=== PATIENT | male | born 1945 | race Caucasian/White ===

== ENCOUNTER → 2019-01-10 | Outpatient (REF) | END | disposition home or self-care (01) | DRG 310 | LOC: LAB 10:50 | DX: I48.0 Paroxysmal atrial fibrillation (principal); Z79.01 Long term (current) use of anticoagulants ==

== ENCOUNTER 2019-09-14 23:35 | Inpatient (IN) | payer MEDICARE ==
[~2019-09-14] VITALS: Ht 180.3 cm; Wt 120.3 kg
[2019-09-14] MEDS ORDERED: ATORVASTATIN CA80 MG PO (23:57)
[2019-09-14] MEDS ORDERED: LOPID600 MG PO (23:57)
[2019-09-14] MEDS ORDERED: NOVOLIN 70/30 SC (23:58)
[2019-09-14] MEDS ORDERED: LOPRESSOR50 M1 PO (23:58)
[2019-09-14] MEDS ORDERED: METFORMIN500 M2 PO (23:58)
[2019-09-14] MEDS ORDERED: COUMADIN2.5 MG PO (23:59)
[2019-09-14] MEDS ORDERED: TAMSULOSIN0.4 MG PO (23:59)
[2019-09-15] VITALS (7 sets, daily range): BP systolic 127–162; BP diastolic 63–81
[2019-09-15 00:21] LABS: HEMATOCRIT 43.7 % (39.0-50.0); HEMOGLOBIN 14.3 g/dl (14.0-18.0); IMMATURE GRANULOCYTES 0.3 % (0.0-5.0); MEAN CELL VOLUME 88.6 fL CALC (80.0-100.0); MEAN CORPUSCULAR HGB CONC 32.7 g/L CALC (32.0-36.0); NEUT# 6.7 thou/uL (1.82-7.42); RED BLOOD COUNT 4.93 mill/uL (4.70-6.10)
[2019-09-15 00:39] LABS: ALBUMIN 4.4 g/dL (3.2-5.0); CREATININE 1.5 mg/dL (0.7-1.3); POTASSIUM 4.2 mmol/l (3.5-5.1); TOTAL PROTEIN 8.3 g/dL (6.3-8.2)
[2019-09-15 00:56] LABS: URINE BILIRUBIN - DIPSTICK NEGATIVE (NEGATIVE); URINE BLOOD DIPSTICK SMALL (NEGATIVE); URINE COLOR YELLOW; URINE GLUCOSE - DIPSTICK NEGATIVE (NEGATIVE); URINE KETONE NEGATIVE (NEGATIVE); URINE NITRITE - DIPSTICK NEGATIVE (Negative); URINE PROTEIN - DIPSTICK 100 mg/dL (NEG-TRACE); URINE SPECIFIC GRAVITY >=1.030
[2019-09-15 01:01] LABS: URINE LEUK ESTERASE NEGATIVE (NEGATIVE)
[2019-09-15 01:03] LABS: URINE BACTERIA FEW hpf; URINE EPITHELIAL CELLS FEW EPI/hpf (0-FEW)
[2019-09-15 01:04] LABS: URINE CASTS FEW lpf (NONE-RARE); URINE HYALINE CAST FEW lpf (NONE-RARE); URINE MUCUS FEW hpf (NONE-FEW)
[2019-09-15 01:33] LABS: PROTHROMBIN TIME 33.5 SECONDS (9.0-12.5)
[2019-09-15 01:34] LABS: INTERNATIONAL NORMALIZED RATIO 3.4 RATIO (0.7-1.3)
[2019-09-15 09:39] LABS: ANION GAP 14 (6-22 (CALC)); BUN 27 mg/dL (8-23); BUN/CREATININE RATIO 24 (12-20 (CALC)); CHLORIDE 110 mmol/l (95-108); CREATININE 1.1 mg/dL (0.7-1.3); GFR > 60 ML/MIN (>=60 (CALC)); GFR FOR AFR.AMER. > 60 ML/MIN (>=60 (CALC)); MAGNESIUM 1.6 mg/dL (1.6-2.3); POTASSIUM 4.3 mmol/l (3.5-5.1); SODIUM 139 mmol/l (137-146)
[2019-09-15 09:50] LABS: CARBON DIOXIDE 19 mmol/l (22-30)
[2019-09-15 10:19] LABS: HEMATOCRIT 39.4 % (39.0-50.0); HEMOGLOBIN 12.9 g/dl (14.0-18.0); IMMATURE GRANULOCYTES 0.5 % (0.0-5.0); MEAN CELL VOLUME 87.8 fL CALC (80.0-100.0); MEAN CORPUSCULAR HGB 28.7 pG CALC (26.0-32.0); MEAN CORPUSCULAR HGB CONC 32.7 g/L CALC (32.0-36.0); NEUT# 3.77 thou/uL (1.82-7.42); RED BLOOD COUNT 4.49 mill/uL (4.70-6.10)
[2019-09-15] MEDS ORDERED: ENALAPRIL2.5 MG PO (11:36)
[2019-09-15] MEDS ORDERED: NITROSTAT0.4 MG SL (11:37)
[2019-09-15] MEDS ORDERED: CLOPIDOGREL75 MG PO (11:38)
[2019-09-15 15:26] LABS: INTERNATIONAL NORMALIZED RATIO 2.9 RATIO (0.7-1.3); PROTHROMBIN TIME 29.1 SECONDS (9.0-12.5)
[2019-09-16 00:25] VITALS: BP 160/79
[2019-09-16 03:40] VITALS: BP 106/63
[2019-09-16 04:51] LABS: HEMATOCRIT 34.9 % (39.0-50.0); HEMOGLOBIN 11.3 g/dl (14.0-18.0); IMMATURE GRANULOCYTES 0.6 % (0.0-5.0); MEAN CELL VOLUME 88.4 fL CALC (80.0-100.0); MEAN CORPUSCULAR HGB 28.6 pG CALC (26.0-32.0); MEAN CORPUSCULAR HGB CONC 32.4 g/L CALC (32.0-36.0); NEUT# 5.21 thou/uL (1.82-7.42); RED BLOOD COUNT 3.95 mill/uL (4.70-6.10); RED CELL DISTRI WIDTH 13.8 % (11.5-15.5)
[2019-09-16 05:09] LABS: BUN 24 mg/dL (8-23); BUN/CREATININE RATIO 26 (12-20 (CALC)); CHLORIDE 109 mmol/l (95-108); GFR > 60 ML/MIN (>=60 (CALC)); GFR FOR AFR.AMER. > 60 ML/MIN (>=60 (CALC)); POTASSIUM 4.3 mmol/l (3.5-5.1); SODIUM 138 mmol/l (137-146)
[2019-09-16 05:12] LABS: ANION GAP 9 (6-22 (CALC)); CARBON DIOXIDE 24 mmol/l (22-30)
[2019-09-16 05:13] LABS: INTERNATIONAL NORMALIZED RATIO 2.2 RATIO (0.7-1.3); PROTHROMBIN TIME 21.8 SECONDS (9.0-12.5)
[2019-09-16 11:56] VITALS: BP 162/75
[2019-09-16] MEDS ORDERED: PREDNISONE10 MG PO (13:00)
[2019-09-16] MEDS ORDERED: LEVAQUIN750 MG PO (13:00)
== END 2019-09-16 16:26 | disposition home or self-care (01) | DRG 193 ==
LOC: ED 23:35 → ED-I 09-15 01:37 → ED 09-15 01:56 → MS2 09-15 01:57
PROVIDERS: Emergency Medicine; Nurse Practitioner Family; ADMIT Internal Medicine; ATTEND Internal Medicine
DX: J18.9 Pneumonia, unspecified organism (principal); J96.21 Acute and chronic respiratory failure with hypoxia; I10 Essential (primary) hypertension; E11.9 Type 2 diabetes mellitus without complications; I48.0 Paroxysmal atrial fibrillation; I25.10 Atherosclerotic heart disease of native coronary artery without angina pectoris; E78.5 Hyperlipidemia, unspecified; R79.1 Abnormal coagulation profile; T45.515A Adverse effect of anticoagulants, initial encounter; I69.992 Facial weakness following unspecified cerebrovascular disease; H91.90 Unspecified hearing loss, unspecified ear; Z79.4 Long term (current) use of insulin; Z79.01 Long term (current) use of anticoagulants; Z95.1 Presence of aortocoronary bypass graft; Z87.891 Personal history of nicotine dependence; Z91.19 Patient's noncompliance with other medical treatment and regimen; Z79.02 Long term (current) use of antithrombotics/antiplatelets

== ENCOUNTER 2019-12-29 | Inpatient (IN) | payer MEDICARE ==
[~2019-12-29] MED LIST: ATORVASTATIN CA80 MG PO; CLOPIDOGREL75 MG PO; COUMADIN2 MG PO; ENALAPRIL2.5 MG PO; LEVAQUIN750 MG PO; LOPID600 MG PO; LOPRESSOR50 M1 PO; METFORMIN500 M2 PO; NITROSTAT0.4 MG SL; NOVOLIN 70/30 SC; PREDNISONE10 MG PO; TAMSULOSIN0.4 MG PO
[2019-12-29 16:03] VITALS: BP 159/65
[2019-12-29 16:25] LABS: IMMATURE GRANULOCYTES 0.3 % (0.0-5.0); MEAN CELL VOLUME 83.4 fL CALC (80.0-100.0); MEAN CORPUSCULAR HGB 27.7 pG CALC (26.0-32.0); MEAN CORPUSCULAR HGB CONC 33.2 g/L CALC (32.0-36.0); NEUT# 8.81 thou/uL (1.82-7.42); RED BLOOD COUNT 5.24 mill/uL (4.70-6.10); RED CELL DISTRI WIDTH 13.4 % (11.5-15.5)
[2019-12-29 16:42] LABS: HEMATOCRIT 43.7 % (39.0-50.0); HEMOGLOBIN 14.5 g/dl (14.0-18.0)
--- NOTE | 2019-12-29 17:00 | NUR ---
PT ARRIVES BY WHEELCHAIR PUSHED BY VOLUNTEER A DIRECT ADMIT FROM DR BARRETT'S OFFICE. PT IS AWAKE, ALERT, ORIENTED X 3. PT WITH HX OF KIDNEY STONES RECOGNIZES THIS ANOTHER EPISODE. IV ESTABLISHED, BLOOD DRAWN, MED PROVIDED. PT HAS BEEN TO CT AND BACK. NO ACUTE DISTRESS, BUT PT UNCOMFORTABLE.
[2019-12-29 17:03] LABS: ALBUMIN 4.4 g/dL (3.2-5.0); BILIRUBIN, TOTAL 1.2 mg/dL (0.0-1.4); POTASSIUM 4.7 mmol/l (3.5-5.1); TOTAL PROTEIN 8.2 g/dL (6.3-8.2)
[2019-12-29 17:08] LABS: PROTHROMBIN TIME 48.6 SECONDS (9.0-12.5)
[2019-12-29 17:12] LABS: CREATININE 2.7 mg/dL (0.7-1.3)
[2019-12-29 18:40] VITALS: BP 156/65
--- NOTE | 2019-12-29 19:23 | NUR ---
PT SLEEPING IN BED. AWAKENED TO COMPLETE ASSESSMENT. PT A&O X3. NO DISTRESS NOTED. C/O OF SOME RT FLANK PAIN. NO OTHER NEEDS AT THIS TIME. URINAL AT BEDSIDE. DISCUSSED POC. ASSESSMENT COMPLETED. CALL LIGHT IN REACH. CONTINUE TO MONITOR.
--- NOTE | 2019-12-29 22:18 | NUR ---
ORDERS PLACED FOR NPO STATUS. EXPLAINED TO PT REASONING BEHIND INTERVENTION. PT VERBALIZED UNDERSTANDING. CONTINUE TO MONITOR.
--- NOTE | 2019-12-29 22:25 | NUR ---
CONSENT FOR FFP ADMINISTRATION OBTAINED.
[2019-12-29 22:43] LABS: URINE BILIRUBIN - DIPSTICK NEGATIVE (NEGATIVE); URINE BLOOD DIPSTICK TRACE-INTACT (NEGATIVE); URINE CLARITY CLEAR; URINE COLOR YELLOW; URINE GLUCOSE - DIPSTICK 100 mg/dL (NEGATIVE); URINE KETONE NEGATIVE (NEGATIVE); URINE LEUK ESTERASE NEGATIVE (Negative); URINE NITRITE - DIPSTICK NEGATIVE (Negative); URINE PH 5.5 (4.5-8.0); URINE PROTEIN - DIPSTICK TRACE mg/dL (NEG-TRACE); URINE UROBILINOGEN - DIPSTICK 0.2 E.U./dL (0.2)
[2019-12-29 22:46] VITALS: BP 126/63
--- NOTE | 2019-12-29 23:06 | NUR ---
FIRST UNIT OF FFP INITIATED. PRODUCT AND PT VERFIED X 2 WITH ARDEN RANGEL. INITIATION OF TRANSFUSION BY ARDEN RANGEL. CONTINUE TO MONITOR.
[2019-12-29 23:21] VITALS: BP 146/56
--- NOTE | 2019-12-29 23:21 | NUR ---
FFP INFUSING, NO DISTRESS OR REACTION NOTED. CONTINUE TO MONITOR.
[2019-12-30] VITALS (14 sets, daily range): BP systolic 100–155; BP diastolic 51–73
--- NOTE | 2019-12-30 00:06 | NUR ---
FFP INFUSING. NO DISTRESS NOTED. CONTINUE TO MONITOR.
--- NOTE | 2019-12-30 00:44 | NUR ---
FFP INFUSION COMPLETE. NO DISTRESS NOTED. CONTINUE TO MONITOR.
--- NOTE | 2019-12-30 01:23 | NUR ---
SECOND UNIT OF FFP INITIATED. PRODUCT AND PT VERIFIED X 2 WITH ADREN RANGEL. INITIATION OF TRANSFUSION BY ARDEN CONTINUE TO MONITOR.
--- NOTE | 2019-12-30 01:38 | NUR ---
FFP INFUSING, NO DISTRESS OR REACTION NOTED. CONTINUE TO MONITOR.
--- NOTE | 2019-12-30 02:23 | NUR ---
FFP INFUSING. NO DISTRESS NOTED. CONTINUE TO MONITOR.
--- NOTE | 2019-12-30 03:15 | NUR ---
SECOND OF FFP COMPLETE. NO DISTRESS NOTED. CONTINUE TO MONITOR.
--- NOTE | 2019-12-30 04:39 | NUR ---
PT SLEEPING IN BED. NO DISTRESS NOTED. CONTINUE TO MONITOR.
[2019-12-30 05:18] LABS: MEAN CELL VOLUME 84.1 fL CALC (80.0-100.0); MEAN CORPUSCULAR HGB 27.4 pG CALC (26.0-32.0); MEAN CORPUSCULAR HGB CONC 32.5 g/L CALC (32.0-36.0); RED BLOOD COUNT 4.46 mill/uL (4.70-6.10); RED CELL DISTRI WIDTH 13.2 % (11.5-15.5)
[2019-12-30 05:20] LABS: CREATININE 2.6 mg/dL (0.7-1.3); POTASSIUM 4.2 mmol/l (3.5-5.1)
[2019-12-30 05:24] LABS: HEMATOCRIT 37.5 % (39.0-50.0); HEMOGLOBIN 12.2 g/dl (14.0-18.0)
[2019-12-30 05:27] LABS: INTERNATIONAL NORMALIZED RATIO 2.9 RATIO (0.7-1.3); PROTHROMBIN TIME 29.1 SECONDS (9.0-12.5)
--- NOTE | 2019-12-30 07:45 | NUR ---
PATIENT SITTING UP IN RECLINER SLEEPING SOUNDLY. NOT DISTURBED AT THIS TIME. RESP EVEN AND UNLABORED.
--- NOTE | 2019-12-30 09:00 | NUR ---
AWAKE ON ROUNDS, SPOUSE AT BEDSIDE. VSS. RESP NON-LABORED, LUNGS CLEAR. IV IN LAC, SITE BENIGN. SHIFT ASSESSMENT COMPLETED. DISCUSSED PLAN OF CARE. CONSENT OBTAINED FOR OR TODAY. CALL SANCHEZ IN REACH.
--- NOTE | 2019-12-30 10:05 | NUR ---
PATIENT UP OOB AND SHOWERED. MEDICATED FOR C/O PAIN WITH DILAUDID ORDERED.
--- NOTE | 2019-12-30 10:30 | NUR ---
PATIENT STATES PAIN MED HAS HELPED, PAIN LEVEL DECREASED.
--- NOTE | 2019-12-30 12:22 | NUR ---
RESTING WITH EYES CLOSED. RESP NON-LABORED. NPO STATUS MAINTAINED FOR OR THIS AFTERNOON.
--- NOTE | 2019-12-30 12:45 | NUR ---
TO OR VIA STRETCHER ACCOMPANIED BY OR STAFF.
--- NOTE | 2019-12-30 15:25 | NUR ---
RETURNED FROM OR VIA STRETCHER. PATIENT DROWSY BUT AROUSABLE TO NAME. PATIENT TRANSFERRED SELF FROM STRETCHER TO BED. PATIENT ASSISTED TO STAND TO VOID USING URINAL. PATIENT VOIDS 100 ML CLOUDY TEA COLORED URINE.
--- NOTE | 2019-12-30 18:50 | NUR ---
REPORT REC FROM TANIYA RANGEL
--- NOTE | 2019-12-30 19:37 | NUR ---
PT SLEEPING IN BED. AWAKENED TO COMPLETE ASSESSMENT. PT A&O X3, BUT DROWSINESS NOTED. NO COMPLAINTS OF PAIN AT THIS TIME, PER PT A LITTLE BIT OF PAIN IS FELT WHEN HE URINATES. ASSISTED PT TO THE SIDE OF THE BED TO USE THE URINAL, URINE TEA IN COLOR. SCD'S IN PLACE. DISCUSSED POC. ASSESSMENT COMPLETED. CALL LIGHT IN REACH. CONTINUE TO MONITOR.
--- NOTE | 2019-12-31 | NUR ---
PT SITTING IN BED WATCHING TV AND EATING ICE CREAM. NO OTHER NEEDS AT THIS TIME. CONTINUE TO MONITOR.
[2019-12-31 03:23] VITALS: BP 139/70
--- NOTE | 2019-12-31 04:00 | NUR ---
PT SLEEPING IN BED. NO DISTRESS NOTED. CONTINUE TO MONITOR.
[2019-12-31 05:07] LABS: INTERNATIONAL NORMALIZED RATIO 2.7 RATIO (0.7-1.3); PROTHROMBIN TIME 26.6 SECONDS (9.0-12.5)
--- NOTE | 2019-12-31 07:35 | NUR ---
RESTING IN BED. AWAKE ON ROUNDS. DENIES ANY PAIN OR DISCOMFORTS. RESP NON-LABORED. LUNGS CLEAR. LAC SALINE LOCK INATCT, SITE BENIGN. SHIFT ASSESSMENT COMPLETED. DENIES ANY PAIN OR DISCOMFORTS. CALL SANCHEZ IN REACH.
[2019-12-31 08:25] LABS: HEMATOCRIT 33.3 % (39.0-50.0); HEMOGLOBIN 10.8 g/dl (14.0-18.0); MEAN CELL VOLUME 86.3 fL CALC (80.0-100.0); MEAN CORPUSCULAR HGB CONC 32.4 g/L CALC (32.0-36.0); RED BLOOD COUNT 3.86 mill/uL (4.70-6.10); RED CELL DISTRI WIDTH 13.5 % (11.5-15.5)
[2019-12-31 08:33] LABS: CREATININE 1.9 mg/dL (0.7-1.3); POTASSIUM 4.2 mmol/l (3.5-5.1)
[2019-12-31 08:37] LABS: BILIRUBIN, TOTAL 0.7 mg/dL (0.0-1.4); TOTAL PROTEIN 5.8 g/dL (6.3-8.2)
[2019-12-31] MEDS ORDERED: KEFLEX500 MG PO (11:12)
--- NOTE | 2019-12-31 12:37 | NUR ---
Discharge instructions given. Patient verbalizes understanding of same. Discharged in stable condition via Wheelchair to Home with spouse. All belongings sent with pt.
== END 2019-12-31 12:34 | disposition home or self-care (01) | DRG 660 ==
PROVIDERS: Nurse Practitioner Family; ADMIT Internal Medicine
PROC: 30233K1 Transfusion of Nonautologous Frozen Plasma into Peripheral Vein, Percutaneous Approach (ICD-10-PCS; 2019-12-29)
PROC: 0T768DZ Dilation of Right Ureter with Intraluminal Device, Via Natural or Artificial Opening Endoscopic (ICD-10-PCS; principal; 2019-12-30)
PROC: BT1D1ZZ Fluoroscopy of Right Kidney, Ureter and Bladder using Low Osmolar Contrast (ICD-10-PCS; 2019-12-30)
PROC: 30233K1 Transfusion of Nonautologous Frozen Plasma into Peripheral Vein, Percutaneous Approach (ICD-10-PCS; 2019-12-30)
DX: N13.6 Pyonephrosis (principal); E87.1 Hypo-osmolality and hyponatremia; I48.20 Chronic atrial fibrillation, unspecified; D68.32 Hemorrhagic disorder due to extrinsic circulating anticoagulants; N17.9 Acute kidney failure, unspecified; R31.9 Hematuria, unspecified; I12.9 Hypertensive chronic kidney disease with stage 1 through stage 4 chronic kidney disease, or unspecified chronic kidney disease; E11.22 Type 2 diabetes mellitus with diabetic chronic kidney disease; N18.9 Chronic kidney disease, unspecified; I25.10 Atherosclerotic heart disease of native coronary artery without angina pectoris; N40.0 Benign prostatic hyperplasia without lower urinary tract symptoms; E78.5 Hyperlipidemia, unspecified; F03.90 Unspecified dementia, unspecified severity, without behavioral disturbance, psychotic disturbance, mood disturbance, and anxiety; T45.515A Adverse effect of anticoagulants, initial encounter; Z95.1 Presence of aortocoronary bypass graft; Z79.4 Long term (current) use of insulin; Z87.891 Personal history of nicotine dependence; Z86.73 Personal history of transient ischemic attack (TIA), and cerebral infarction without residual deficits; Z79.01 Long term (current) use of anticoagulants; Z87.442 Personal history of urinary calculi
CPT/HCPCS: C1769; Q9967

== ENCOUNTER 2020-11-22 10:22 | Inpatient (IN) | payer MEDICARE ==
[~2020-11-22] VITALS: Ht 180.3 cm; Wt 102.1 kg
[~2020-11-22 10:22] MED LIST changes: -COUMADIN2 MG PO; +KEFLEX500 MG PO; +WARFARIN SODIU2.5 MG PO
[2020-11-22 10:55] VITALS: BP 146/73
[2020-11-22 11:40] LABS: HEMOGLOBIN 12.5 g/dl (14.0-18.0); IMMATURE GRANULOCYTES 0.3 % (0.0-5.0); MEAN CELL VOLUME 82.8 fL CALC (80.0-100.0); MEAN CORPUSCULAR HGB 25.9 pG CALC (26.0-32.0); MEAN CORPUSCULAR HGB CONC 31.3 g/dL CAL (32.0-36.0); NEUT# 3.86 thou/uL (1.82-7.42); RED BLOOD COUNT 4.83 mill/uL (4.70-6.10); RED CELL DISTRI WIDTH 14.8 % (11.5-15.5)
[2020-11-22 11:56] LABS: INTERNATIONAL NORMALIZED RATIO 3.2 RATIO (0.7-1.3); PROTHROMBIN TIME 29.8 SECONDS (9.0-12.5)
[2020-11-22 12:00] LABS: BILIRUBIN, TOTAL 0.8 mg/dL (0.0-1.4); BUN 31 mg/dL (8-23); BUN/CREATININE RATIO 14 (12-20 (CALC)); CHLORIDE 105 mmol/l (95-108); CREATININE 2.2 mg/dL (0.7-1.3); GFR 29 ML/MIN (>=60 (CALC)); GFR FOR AFR.AMER. 36 ML/MIN (>=60 (CALC)); POTASSIUM 4.1 mmol/l (3.5-5.1); SGOT/AST 18 u/l (19-48)
[2020-11-22 12:01] LABS: ALBUMIN 4.1 g/dL (3.2-5.0); ANION GAP 13 (6-22 (CALC)); CARBON DIOXIDE 27 mmol/l (22-30); SODIUM 141 mmol/l (137-146); TOTAL PROTEIN 8.3 g/dL (6.3-8.2)
[2020-11-22 12:02] LABS: ALKALINE PHOSPHATASE 191 u/l (38-126)
[2020-11-22] MEDS ORDERED: METFORMIN HCL1000 MG PO (15:09)
[2020-11-22] MEDS ORDERED: CIPROFLOXACN500 MG PO (15:10)
[2020-11-22] MEDS ORDERED: LOPID600 MG PO (15:10)
[2020-11-22 15:35] VITALS: BP 138/85
[2020-11-22 17:45] LABS: URINE BILIRUBIN - DIPSTICK NEGATIVE (NEGATIVE); URINE BLOOD DIPSTICK SMALL (NEGATIVE); URINE CLARITY CLEAR; URINE COLOR YELLOW; URINE GLUCOSE - DIPSTICK NEGATIVE (NEGATIVE); URINE KETONE NEGATIVE (NEGATIVE); URINE LEUK ESTERASE NEGATIVE (Negative); URINE NITRITE - DIPSTICK NEGATIVE (Negative); URINE PROTEIN - DIPSTICK NEGATIVE (NEG-TRACE); URINE UROBILINOGEN - DIPSTICK 0.2 E.U./dL (0.2)
[2020-11-22 18:24] LABS: URINE WBC 0-2 WBC/hpf (0-5)
[2020-11-22 19:07] VITALS: BP 157/82
[2020-11-23] VITALS (12 sets, daily range): BP systolic 104–150; BP diastolic 42–79
[2020-11-23 05:25] LABS: BILIRUBIN, TOTAL 0.6 mg/dL (0.0-1.4); CREATININE 1.8 mg/dL (0.7-1.3)
[2020-11-23 05:29] LABS: ALBUMIN 2.9 g/dL (3.2-5.0); TOTAL PROTEIN 5.8 g/dL (6.3-8.2)
[2020-11-24] VITALS: BP 144/73
[2020-11-24 04:00] VITALS: BP 139/58
[2020-11-24 07:49] VITALS: BP 130/68
[2020-11-24 09:54] LABS: HEMOGLOBIN 11.9 g/dl (14.0-18.0); IMMATURE GRANULOCYTES 0.2 % (0.0-5.0); MEAN CORPUSCULAR HGB 25.3 pG CALC (26.0-32.0); MEAN CORPUSCULAR HGB CONC 30.5 g/dL CAL (32.0-36.0); NEUT# 3.53 thou/uL (1.82-7.42); RED BLOOD COUNT 4.7 mill/uL (4.70-6.10); RED CELL DISTRI WIDTH 14.7 % (11.5-15.5)
[2020-11-24 10:13] LABS: PROTHROMBIN TIME 18.9 SECONDS (9.0-12.5)
[2020-11-24 11:04] VITALS: BP 134/70
== END 2020-11-24 12:58 | disposition home or self-care (01) | DRG 661 ==
LOC: MS2 10:22
PROVIDERS: Nurse Practitioner; ADMIT Internal Medicine; ATTEND Internal Medicine
PROC: 0T768DZ Dilation of Right Ureter with Intraluminal Device, Via Natural or Artificial Opening Endoscopic (ICD-10-PCS; principal; 2020-11-23)
PROC: BT1D1ZZ Fluoroscopy of Right Kidney, Ureter and Bladder using Low Osmolar Contrast (ICD-10-PCS; 2020-11-23)
DX: N13.2 Hydronephrosis with renal and ureteral calculous obstruction (principal); N17.9 Acute kidney failure, unspecified; I48.0 Paroxysmal atrial fibrillation; I25.10 Atherosclerotic heart disease of native coronary artery without angina pectoris; I10 Essential (primary) hypertension; E11.9 Type 2 diabetes mellitus without complications; E78.5 Hyperlipidemia, unspecified; F03.90 Unspecified dementia, unspecified severity, without behavioral disturbance, psychotic disturbance, mood disturbance, and anxiety; Z79.01 Long term (current) use of anticoagulants; Z79.4 Long term (current) use of insulin; Z79.899 Other long term (current) drug therapy; Z95.1 Presence of aortocoronary bypass graft; Z87.442 Personal history of urinary calculi; Z86.73 Personal history of transient ischemic attack (TIA), and cerebral infarction without residual deficits; Z96.651 Presence of right artificial knee joint; Z87.891 Personal history of nicotine dependence
CPT/HCPCS: C1769; J0131; Q9967

== ENCOUNTER 2020-12-20 11:54 | Inpatient (IN) | payer MEDICARE ==
[~2020-12-20] VITALS: Ht 180.3 cm; Wt 98.4 kg
[~2020-12-20 11:54] MED LIST changes: +CIPROFLOXACN500 MG PO; +METFORMIN HCL1000 MG PO
--- NOTE | 2020-12-20 12:06 | NUR ---
PT ARRIVED VIA WC WITH STAFF IV SITE STARTED BY Brandy RANGEL WITH #20 IN [facility].
[2020-12-20 12:15] VITALS: BP 141/80
--- NOTE | 2020-12-20 13:30 | NUR ---
ASSESSMENT IS COMPELTED: IV SITE IS FREE FROM REDNESS OR EDEMA. HR IS REG,PULSES ARE STRONG X4, ABD IS SOFT WITH ACTIVE BS. BREATH SOUNDS ARE CLEAR BILATERALLY. WAITING ON SURGERY TOMORROW. TELE MONITOR IN PLACE.
--- NOTE | 2020-12-20 14:40 | NUR ---
LABS DRAWN AND COVID TESTING WAS PERFORMED AT THIS TIME.
[2020-12-20 15:04] LABS: HEMOGLOBIN 11.5 g/dl (14.0-18.0); MEAN CORPUSCULAR HGB 25.8 pG CALC (26.0-32.0); MEAN CORPUSCULAR HGB CONC 31.1 g/dL CAL (32.0-36.0); NEUT# 1.43 thou/uL (1.82-7.42); RED BLOOD COUNT 4.46 mill/uL (4.70-6.10); RED CELL DISTRI WIDTH 15.4 % (11.5-15.5)
[2020-12-20 15:20] VITALS: BP 152/81
[2020-12-20 15:27] LABS: PROTHROMBIN TIME 13.7 SECONDS (9.0-12.5)
[2020-12-20 15:28] LABS: INTERNATIONAL NORMALIZED RATIO 1.4 RATIO (0.7-1.3)
[2020-12-20 15:30] LABS: ALBUMIN 3.4 g/dL (3.2-5.0); ALKALINE PHOSPHATASE 144 u/l (38-126); ANION GAP 9 (6-22 (CALC)); BILIRUBIN, TOTAL 0.8 mg/dL (0.0-1.4); BUN 25 mg/dL (8-23); BUN/CREATININE RATIO 19 (12-20 (CALC)); CARBON DIOXIDE 27 mmol/l (22-30); CHLORIDE 107 mmol/l (95-108); CREATININE 1.3 mg/dL (0.7-1.3); GFR 54 ML/MIN (>=60 (CALC)); GFR FOR AFR.AMER. > 60 ML/MIN (>=60 (CALC)); POTASSIUM 4.1 mmol/l (3.5-5.1); SODIUM 139 mmol/l (137-146); TOTAL PROTEIN 6.4 g/dL (6.3-8.2)
[2020-12-20 15:38] LABS: SGOT/AST 28 u/l (19-48)
[2020-12-20 19:00] VITALS: BP 150/78
--- NOTE | 2020-12-20 20:00 | NUR ---
CONSENT FORM SIGNED FOR SURGERY. PT REMAINS IN BED REMINDED HIM ABOUT NPO PROTOCOL STARTING AT MIDNIGHT. HE IS ALERT AND ORIENTED. CALL LIGHT WITHIN REACJ. WILL CONTINUE TO MONITOR
--- NOTE | 2020-12-21 | NUR ---
PT SLEEPING PEACEFULLY IN BED. NPO PROTOCAL IN PLACE. CALL LIGHT WITHIN REACH WILL CONTINUE TO MONITOR
[2020-12-21 04:01] VITALS: BP 152/78
--- NOTE | 2020-12-21 04:17 | NUR ---
PT SUGAR 54. PT UNRESPONSIVE. AFTER NUMEROUS ATTEMPS TO WAKE HE RESPONDS. PT IS GIVEN TWO CONTAINERS OF ORANGE JUICE AND SUGAR. BOLUS DEXTROSE 250 GIVEN OVER 15 MIN. PT IS SYMPTOMATIC NURSE SITTING BY PT BED SIDE
[2020-12-21 05:34] LABS: ALKALINE PHOSPHATASE 141 u/l (38-126); ANION GAP 8 (6-22 (CALC)); BILIRUBIN, TOTAL 0.8 mg/dL (0.0-1.4); BUN 22 mg/dL (8-23); BUN/CREATININE RATIO 18 (12-20 (CALC)); CARBON DIOXIDE 28 mmol/l (22-30); CHLORIDE 109 mmol/l (95-108); CREATININE 1.3 mg/dL (0.7-1.3); GFR 54 ML/MIN (>=60 (CALC)); GFR FOR AFR.AMER. > 60 ML/MIN (>=60 (CALC)); POTASSIUM 3.6 mmol/l (3.5-5.1); SGOT/AST 26 u/l (19-48); SODIUM 141 mmol/l (137-146); TOTAL PROTEIN 5.8 g/dL (6.3-8.2)
--- NOTE | 2020-12-21 07:15 | NUR ---
PT ALERT AND ORIENTED NO SIGNS OF HYPOGYLCEMIA. RESPONSIVE WHEN NURSE CALLS HIS NAME. CONTINUE NPO. SAMIR LIGHT WITH IN REACH CONTINUING TO MONIOR PT
[2020-12-21 07:50] VITALS: BP 154/70
--- NOTE | 2020-12-21 07:50 | NUR ---
PT RESTING IN SEMI FOWLERS POSITION. PT IS A/O X2 WITH SOME CONFUSION. ASSESSMENT AND VITALS COMPLETED. BP 154/70, HR 57, O2 99% ON ROOM AIR. RESPIRAITONS ARE EVEN AND UNLABORED WITH NO DISTRESS NOTED. HEART RHYTHM NORMAL. BOWEL SOUNDS ARE ACTIVE. RADIAL AND PEDAL PUSLES STRONG. #22G IN LAC FLUSHED, SITE APPEARS HEALTHY AND PATENT. SKIN IS WARM AND INTACT.PT SCHEDULED FOR LASER LITHROTRIPSY BY DR AMAYA. PT DENIES OF ANY PAINS OR DISCOMFORTS. ALL SAFETY PRECAUTIONS ARE IN PLACE WITH CALL LIGHT IN REACH. WILL CONTINUE TO MONITOR
--- NOTE | 2020-12-21 09:08 | NUR ---
DR BARRETT AT BEDSIDE
[2020-12-21 09:15] LABS: URINE BILIRUBIN - DIPSTICK NEGATIVE (NEGATIVE); URINE BLOOD DIPSTICK LARGE (NEGATIVE); URINE CLARITY SL CLOUDY; URINE COLOR YELLOW; URINE GLUCOSE - DIPSTICK NEGATIVE (NEGATIVE); URINE KETONE NEGATIVE (NEGATIVE); URINE LEUK ESTERASE NEGATIVE (Negative); URINE NITRITE - DIPSTICK NEGATIVE (Negative); URINE PROTEIN - DIPSTICK 30 mg/dL (NEG-TRACE); URINE SPECIFIC GRAVITY 1.025; URINE UROBILINOGEN - DIPSTICK 0.2 E.U./dL (0.2)
--- NOTE | 2020-12-21 09:15 | NUR ---
NOTIFED BY OR THAT PROCEDURE WILL TAKE PLACE AROUND NOON. PT NOTFIED
[2020-12-21 09:27] LABS: URINE RBC >100 RBC/hpf (0-5)
[2020-12-21 09:28] LABS: URINE RENAL EPITHELIAL CELLS FEW hpf; URINE TRANSITIONAL EPI. CELLS FEW hpf
[2020-12-21 09:29] LABS: URINE BACTERIA RARE hpf
--- NOTE | 2020-12-21 12:10 | NUR ---
PT RESTING IN LOW FOWLERS POSITION. RESPIRATIONS ARE EVEN AND UNLABORED ON ROOM AIR. NPO STATUS REMIANS. IVF INFUSING WITH EASE, SITE APPEARS HEALTHY AND PATENT. PT DENIES OF ANY PAINS. ALL SAFETY PRECAUTIONS ARE IN PLACE WITH CALL LIGHT IN REACH. WILL CONTINUE TO MONITOR.
[2020-12-21 16:35] VITALS: BP 140/67
--- NOTE | 2020-12-21 16:40 | NUR ---
PT ARRIVED BACK TO [facility] ROOM 270 VIA BED IN STABLE CONDITION. PT REAMINS A/O X2. PLANS FOR DISCHARGE. PT INFORMED. ALL SAFETY PRECAUTIONS ARE IN PLACE. WILL CONTINUE TO MONITOR.
[2020-12-21 16:50] VITALS: BP 106/76
[2020-12-21 17:05] VITALS: BP 130/39
[2020-12-21 17:20] VITALS: BP 111/55
[2020-12-21] MEDS ORDERED: DICYCLOMINE20 MG PO (18:20)
[2020-12-21] MEDS ORDERED: ULTRAM50 M1 PO (18:25)
--- NOTE | 2020-12-21 18:50 | NUR ---
PT EDUCATED ON DISHARGED INSTRUCTIONS AND NEW MEDICATIONS. PT VERBLAIZED UNDERSTANDING. #20G IN RAC REMOVED WITH CATAHTER STILL INTACT. PT TOELRATED WELL. WAITING FOR TRANSPORTATION. WILL CONTINUE TO MONITOR
--- NOTE | 2020-12-21 19:00 | NUR ---
Discharge instructions given. Patient verbalizes understanding of same. Discharged in stable condition via Wheelchair to Home with staff. All belongings sent with pt. PT DISCHARGE VIA WHEELCHAIR IN STABLE CONDITION WITH ALL BELONGINGS. HOME MED SLIP IN CHART, PT DENIES BRINGING ANY HOME MEDCATIONS TO HOSPITAL.
[2020-12-22] MEDS ORDERED: HYDROCO/APAP1 TA9 PO (09:41)
== END 2020-12-21 19:00 | disposition home or self-care (01) | DRG 694 ==
LOC: MS2 11:54
PROVIDERS: ADMIT Internal Medicine; ATTEND Internal Medicine
PROC: 0TF38ZZ Fragmentation in Right Kidney Pelvis, Via Natural or Artificial Opening Endoscopic (ICD-10-PCS; principal; 2020-12-21)
PROC: 0TP98DZ Removal of Intraluminal Device from Ureter, Via Natural or Artificial Opening Endoscopic (ICD-10-PCS; 2020-12-21)
PROC: BT1DZZZ Fluoroscopy of Right Kidney, Ureter and Bladder (ICD-10-PCS; 2020-12-21)
DX: N20.1 Calculus of ureter (principal); I48.20 Chronic atrial fibrillation, unspecified; F03.91 Unspecified dementia, unspecified severity, with behavioral disturbance; I10 Essential (primary) hypertension; E11.9 Type 2 diabetes mellitus without complications; I25.10 Atherosclerotic heart disease of native coronary artery without angina pectoris; E78.5 Hyperlipidemia, unspecified; Z86.73 Personal history of transient ischemic attack (TIA), and cerebral infarction without residual deficits; Z87.442 Personal history of urinary calculi; Z95.1 Presence of aortocoronary bypass graft; Z87.891 Personal history of nicotine dependence; Z79.01 Long term (current) use of anticoagulants; Z96.0 Presence of urogenital implants; Z20.822 Contact with and (suspected) exposure to COVID-19
CPT/HCPCS: Q9967

== ENCOUNTER 2020-12-22 06:29 | Emergency (ER) | payer MEDICARE ==
[~2020-12-22] VITALS: Ht 180.3 cm; Wt 100.0 kg
[~2020-12-22 06:29] MED LIST changes: +DICYCLOMINE20 MG PO; +ULTRAM50 M1 PO
[2020-12-22 08:34] LABS: HEMATOCRIT 39.5 % (39.0-50.0); HEMOGLOBIN 12.3 g/dl (14.0-18.0); IMMATURE GRANULOCYTES 0.5 % (0.0-5.0); MEAN CELL VOLUME 83.3 fL CALC (80.0-100.0); MEAN CORPUSCULAR HGB 25.9 pG CALC (26.0-32.0); MEAN CORPUSCULAR HGB CONC 31.1 g/dL CAL (32.0-36.0); NEUT# 4.2 thou/uL (1.82-7.42); RED BLOOD COUNT 4.74 mill/uL (4.70-6.10); RED CELL DISTRI WIDTH 15.1 % (11.5-15.5)
[2020-12-22 08:57] LABS: ALBUMIN 3.5 g/dL (3.2-5.0); CREATININE 1.5 mg/dL (0.7-1.3); POTASSIUM 4.1 mmol/l (3.5-5.1); TOTAL PROTEIN 6.5 g/dL (6.3-8.2)
[2020-12-22 09:08] LABS: ACT PARTIAL THROMBO TIME 27.9 SECONDS (20.0-32.5); INTERNATIONAL NORMALIZED RATIO 1.2 RATIO (0.7-1.3); PROTHROMBIN TIME 11.6 SECONDS (9.0-12.5)
[2020-12-22 09:12] LABS: URINE BILIRUBIN - DIPSTICK NEGATIVE (NEGATIVE); URINE BLOOD DIPSTICK LARGE (NEGATIVE); URINE GLUCOSE - DIPSTICK 100 mg/dL (NEGATIVE); URINE KETONE 15 mg/dL (NEGATIVE); URINE PH 6.5 (4.5-8.0); URINE PROTEIN - DIPSTICK >=300 mg/dL (NEG-TRACE)
[2020-12-22 09:13] LABS: URINE LEUK ESTERASE SMALL (NEGATIVE); URINE NITRITE - DIPSTICK POSITIVE (Negative)
[2020-12-22 09:14] LABS: URINE COLOR BROWN; URINE RBC TNTC RBC/hpf (0-5)
[2020-12-22 09:15] LABS: URINE BACTERIA FEW hpf; URINE EPITHELIAL CELLS MODERATE EPI/hpf (0-FEW); URINE WBC 0-2 WBC/hpf (0-5)
[2020-12-22] MEDS ORDERED: HYDROCO/APAP1 TA9 PO (09:41)
[2020-12-22 10:02] VITALS: BP 140/73
== END 2020-12-22 10:29 | disposition home or self-care (01) ==
LOC: ED 06:29
PROC: 0T9B70Z Drainage of Bladder with Drainage Device, Via Natural or Artificial Opening (ICD-10-PCS; principal; 2020-12-22)
DX: R33.8 Other retention of urine (principal); N20.1 Calculus of ureter; E11.9 Type 2 diabetes mellitus without complications; I25.10 Atherosclerotic heart disease of native coronary artery without angina pectoris; Z95.1 Presence of aortocoronary bypass graft; Z79.4 Long term (current) use of insulin

== ENCOUNTER 2021-02-06 11:24 | Emergency (ER) | payer MEDICARE ==
[~2021-02-06] VITALS: Ht 180.3 cm; Wt 100.0 kg
[~2021-02-06 11:24] MED LIST changes: +HYDROCO/APAP1 TA9 PO
[2021-02-06 11:59] LABS: HEMATOCRIT 42.3 % (39.0-50.0); HEMOGLOBIN 13.5 g/dl (14.0-18.0); IMMATURE GRANULOCYTES 0.4 % (0.0-5.0); MEAN CELL VOLUME 85.5 fL CALC (80.0-100.0); MEAN CORPUSCULAR HGB 27.3 pG CALC (26.0-32.0); MEAN CORPUSCULAR HGB CONC 31.9 g/dL CAL (32.0-36.0); NEUT# 3.22 thou/uL (1.82-7.42); RED BLOOD COUNT 4.95 mill/uL (4.70-6.10); RED CELL DISTRI WIDTH 16.9 % (11.5-15.5)
[2021-02-06] MEDS ORDERED: WARFARIN SODIU2.5 MG PO (12:12)
[2021-02-06] MEDS ORDERED: DOXYCYCL HYC100 MG PO (12:14)
[2021-02-06 12:16] LABS: ALBUMIN 4.1 g/dL (3.2-5.0); ALKALINE PHOSPHATASE 108 u/l (38-126); ANION GAP 13 (6-22 (CALC)); BILIRUBIN, TOTAL 1.2 mg/dL (0.0-1.4); BUN 29 mg/dL (8-23); BUN/CREATININE RATIO 24 (12-20 (CALC)); CARBON DIOXIDE 28 mmol/l (22-30); CHLORIDE 105 mmol/l (95-108); CREATININE 1.2 mg/dL (0.7-1.3); GFR 59 ML/MIN (>=60 (CALC)); GFR FOR AFR.AMER. > 60 ML/MIN (>=60 (CALC)); POTASSIUM 4.2 mmol/l (3.5-5.1); SGOT/AST 20 u/l (19-48); SODIUM 142 mmol/l (137-146); TOTAL PROTEIN 7.2 g/dL (6.3-8.2)
[2021-02-06 12:17] LABS: ACT PARTIAL THROMBO TIME 25.3 SECONDS (20.0-32.5); INTERNATIONAL NORMALIZED RATIO 1.3 RATIO (0.7-1.3); PROTHROMBIN TIME 13.4 SECONDS (9.0-12.5)
[2021-02-06 15:30] VITALS: BP 175/81
== END 2021-02-06 15:45 | disposition home or self-care (01) ==
LOC: ED 11:24
DX: E11.51 Type 2 diabetes mellitus with diabetic peripheral angiopathy without gangrene (principal); I70.203 Unspecified atherosclerosis of native arteries of extremities, bilateral legs; T87.81 Dehiscence of amputation stump; I25.10 Atherosclerotic heart disease of native coronary artery without angina pectoris; Y83.5 Amputation of limb(s) as the cause of abnormal reaction of the patient, or of later complication, without mention of misadventure at the time of the procedure; Z95.1 Presence of aortocoronary bypass graft; Z79.4 Long term (current) use of insulin; Z95.820 Peripheral vascular angioplasty status with implants and grafts; Z79.01 Long term (current) use of anticoagulants; Z89.421 Acquired absence of other right toe(s)
CPT/HCPCS: Q9967

== ENCOUNTER 2021-06-09 14:08 | Emergency (ER) | payer MEDICARE ==
[~2021-06-09] VITALS: Ht 180.3 cm; Wt 90.0 kg
[~2021-06-09 14:08] MED LIST changes: +DOXYCYCL HYC100 MG PO
[2021-06-09 15:17] LABS: HEMATOCRIT 39.5 % (39.0-50.0); HEMOGLOBIN 12.9 g/dl (14.0-18.0); IMMATURE GRANULOCYTES 0.4 % (0.0-5.0); MEAN CELL VOLUME 83.5 fL CALC (80.0-100.0); MEAN CORPUSCULAR HGB 27.3 pG CALC (26.0-32.0); MEAN CORPUSCULAR HGB CONC 32.7 g/dL CAL (32.0-36.0); NEUT# 9.54 thou/uL (1.82-7.42); RED BLOOD COUNT 4.73 mill/uL (4.70-6.10); RED CELL DISTRI WIDTH 13.4 % (11.5-15.5)
[2021-06-09 15:30] LABS: ALBUMIN 3.5 g/dL (3.2-5.0); BILIRUBIN, TOTAL 1.3 mg/dL (0.0-1.4); CREATININE 1.4 mg/dL (0.7-1.3); POTASSIUM 3.7 mmol/l (3.5-5.1); TOTAL PROTEIN 7.5 g/dL (6.3-8.2)
[2021-06-09 16:05] LABS: ACT PARTIAL THROMBO TIME 64.5 SECONDS (20.0-32.5)
[2021-06-09 16:09] LABS: PROTHROMBIN TIME 58.9 SECONDS (9.0-12.5)
[2021-06-09 16:10] LABS: INTERNATIONAL NORMALIZED RATIO 6.3 RATIO (0.7-1.3)
[2021-06-09 16:50] VITALS: BP 119/91
== END 2021-06-09 16:52 | disposition short-term general hospital (02) ==
LOC: ED 14:08
DX: E11.52 Type 2 diabetes mellitus with diabetic peripheral angiopathy with gangrene (principal); I96 Gangrene, not elsewhere classified; I25.10 Atherosclerotic heart disease of native coronary artery without angina pectoris; T45.516A Underdosing of anticoagulants, initial encounter; Z91.128 Patient's intentional underdosing of medication regimen for other reason; Z95.1 Presence of aortocoronary bypass graft; Z89.421 Acquired absence of other right toe(s); Z79.4 Long term (current) use of insulin; Z79.01 Long term (current) use of anticoagulants
CPT/HCPCS: J1644

== ENCOUNTER 2022-09-11 12:44 | Emergency (ER) | payer MEDICARE ==
[2022-09-11] VITALS (9 sets, daily range): BP systolic 96–121; BP diastolic 45–90
[~2022-09-11] VITALS: Ht 180.3 cm; Wt 90.0 kg
[2022-09-11 13:09] LABS: IMMATURE GRANULOCYTES 0.2 % (0.0-5.0); MEAN CORPUSCULAR HGB 23.6 pG CALC (26.0-32.0); MEAN CORPUSCULAR HGB CONC 30.9 g/dL CAL (32.0-36.0); NEUT# 6.77 thou/uL (1.82-7.42); RED BLOOD COUNT 4.44 mill/uL (4.70-6.10); RED CELL DISTRI WIDTH 15.4 % (11.5-15.5)
[2022-09-11 13:11] LABS: HEMOGLOBIN 10.5 g/dl (14.0-18.0); MEAN CELL VOLUME 76.6 fL CALC (80.0-100.0)
[2022-09-11 13:45] LABS: PROTHROMBIN TIME 188.6 SECONDS (9.0-12.5)
[2022-09-11 13:46] LABS: INTERNATIONAL NORMALIZED RATIO 21.9 RATIO (0.7-1.3)
== END 2022-09-11 15:25 | disposition home or self-care (01) ==
LOC: ED 12:44
PROVIDERS: Nurse Practitioner
DX: R79.1 Abnormal coagulation profile (principal); T45.515A Adverse effect of anticoagulants, initial encounter; I48.91 Unspecified atrial fibrillation; E11.9 Type 2 diabetes mellitus without complications; I73.9 Peripheral vascular disease, unspecified; Z87.442 Personal history of urinary calculi; Z95.1 Presence of aortocoronary bypass graft; Z79.01 Long term (current) use of anticoagulants